=== PATIENT | male | born 1965 | race African-American/Black ===

== ENCOUNTER 2017-10-24 21:23 | Emergency (ER) | payer OTHER ==
[~2017-10-24] VITALS: Ht 182.9 cm; Wt 95.3 kg
[2017-10-24 21:30] VITALS: BP 148/98
--- NOTE | 2017-10-24 21:39 | PHYS DOC ---
Adult General Chief Complaint Chief Complaint: ABSCESS HPI HPI Patient is a 52 year old male presents to the emergency department with complaints of an abscess in the gluteal region for days. Patient was seen by his primary care provider, Dr. Sanders, today. He was referred to the general surgeon and has an appointment Sunday. General surgeon advised that if he cannot wait, he could come to the emergency department to have abscess I&D. Patient presents to the emergency department approximate 7 hours after his doctor's appointment because he had "a meeting to attend". Review of Systems Review of Systems Constitutional: Denies fever or chills [] Eyes: Denies change in visual acuity, redness, or eye pain [] HENT: Denies nasal congestion or sore throat [] Respiratory: Denies cough or shortness of breath [] Cardiovascular: No additional information not addressed in HPI [] GI: Denies abdominal pain, nausea, vomiting, bloody stools or diarrhea [] : Denies dysuria or hematuria [] Musculoskeletal: Denies back pain or joint pain [] Integument: abscess Neurologic: Denies headache, focal weakness or sensory changes [] Endocrine: Denies polyuria or polydipsia [] All other systems were reviewed and found to be within normal limits, except as documented in this note. Current Medications Current Medications Current Medications Medications (Trade) Dose Ordered Sig/[facility] Start Time Stop Time Status Last Admin Dose Admin Lidocaine HCl (Xylocaine-Mpf 1% Vial) 2 ml 1X ONCE 10/24/17 21:45 10/24/17 21:46 DC 10/24/17 21:48 2 ML Allergies Allergies Allergies Coded Allergies Type Severity Reaction Last Updated Verified No Known Drug Allergies 10/24/17 No Physical Exam Physical Exam Constitutional: Well developed, well nourished, no acute distress, non-toxic appearance. [] Cardiovascular:Heart rate regular rhythm, no murmur [] Lungs & Thorax: Bilateral breath sounds clear to auscultation [] Abdomen: Bowel sounds normal, soft, no tenderness, no masses, no pulsatile masses. [] Skin: Revealed cleft, proximal, 2 cm area of induration with central fluctuance. Mild tenderness. No erythema. Current Patient Data Vital Signs Vital Signs Date Time Temp Pulse Resp B/P (MAP) Pulse Ox O2 Delivery O2 Flow Rate FiO2 10/24/17 21:30 98.0 84 18 95 Room Air 98.0 EKG EKG [] Radiology/Procedures Radiology/Procedures Suture note: Area anesthetized with 1% lidocaine, 2 mL. #11 blade used to incise the abscess. Small amount of purulent discharge. Wound copiously irrigated. Wound dressed with 4 x 4's. Patient tolerated well.[] Course & Med Decision Making Course & Med Decision Making Pertinent Labs and Imaging studies reviewed. (See chart for details) [] Dragon Disclaimer Dragon Disclaimer This electronic medical record was generated, in whole or in part, using a voice recognition dictation system. Departure Departure Impression: Primary Impression: Abscess Disposition: HOME, SELF-CARE Condition: STABLE Referrals: JARAD SANDERS MD Patient Instructions: Abscess, Abscess, Care After Additional Instructions: Continue doxycycline as prescribed by your primary care provider. Scripts Acetaminophen With Codeine (TYLENOL WITH CODEINE #3 TABLET) 1 Each Tablet 1 TAB PO PRN Q6HRS Y for PAIN, #10 TAB Prov: FABIAN GUTIERREZ APRN 10/24/17 FABIAN GUTIERREZ APRN Oct 24, 2017 21:39
[2017-10-24] MEDS ORDERED: LIDOCAINE 1% PF 2 ML VIAL. INJ ONE (21:45)
[2017-10-24] MEDS ORDERED: ACET-704 PO (22:08)
== END 2017-10-24 22:21 | disposition home or self-care (01) ==
LOC: ER 21:23
DX: L02.31 Cutaneous abscess of buttock (principal)
CPT/HCPCS: 10060; 99283-25

== ENCOUNTER 2019-01-15 07:44 | Day surgery (SDC) | payer OTHER ==
[~2019-01-15] VITALS: Ht 182.9 cm; Wt 98.9 kg
[~2019-01-15 07:44] MED LIST: ACET-704 PO
[2019-01-15] MEDS ORDERED: TRIA1CAP3 PO (08:12)
[2019-01-15] MEDS ORDERED: MULT-245 PO (08:12)
[2019-01-15] MEDS ORDERED: ATOR20TA58 PO (08:12)
[2019-01-15] MEDS ORDERED: ASCO500C9 PO (08:12)
[2019-01-15] MEDS ORDERED: FLUT9.9S NS (08:12)
[2019-01-15] MEDS ORDERED: ONDANSETRON PF 4 MG/2 ML VIAL. ONE (08:14)
[2019-01-15] MEDS ORDERED: DEXAMETHASONE SOD PHOS 20 MG/5 ML VIAL. ONE (08:14)
[2019-01-15] MEDS ORDERED: LIDOCAINE 2% PF 5 ML VIAL. ONE (08:14)
[2019-01-15] MEDS ORDERED: PROPOFOL 20 ML IV ONE (08:14)
[2019-01-15] MEDS ORDERED: MIDAZOLAM HCL/PF 2 MG/2 ML VIAL. ONE (08:14)
[2019-01-15] MEDS ORDERED: fentaNYL PF VIAL 100 MCG/2 ML VIAL ONE ×2 (08:14→10:55)
[2019-01-15] MEDS ORDERED: ROCURONIUM 50 MG/5 ML VIAL. ONE (08:19)
[2019-01-15] MEDS ORDERED: IV RINGERS,LACTATED 1000ML 1,000 ML IV SCH ×2 (08:45→10:57)
[2019-01-15] MEDS ORDERED: GELATIN SPONGE SIZE 100. ONE (08:57)
[2019-01-15] MEDS ORDERED: BUPIVAC MPF-EPI 0.5%-1:200000 30 ML VIAL. ONE (08:57)
[2019-01-15] MEDS ORDERED: SEVOFLURANE 31 TO 60 MINUTES. IH ONE (09:53)
[2019-01-15] MEDS ORDERED: GLYCOPYRROLATE 1 MG/5 ML VIAL. ONE (09:54)
[2019-01-15] MEDS ORDERED: NEOMY/BACITR/POLYMYXIN OINT PACKET. TP ONE ×3 (09:56→09:58)
--- NOTE | 2019-01-15 10:16 | PDOC4 ---
Operative Note Operative Note Operative Note: Preoperative Diagnosis: Perianal fistula Postoperative Diagnosis: Perianal fistula, hemorrhoids Procedure: Exam under anesthesia, anal fistulotomy, hemorrhoidectomy Surgeon: Clayton Anesthesia: GET EBL: 10 ml Specimen: Hemorrhoids to pathology Drains: None Complications: None Indication: The patient is a 53-year-old male with a prior history of a perirectal abscess for which he underwent prior drainage. Over the last few months he is noticed a spot of continued purulent drainage along the left side of the anal canal. Examination is consistent with a probable perianal fistula. The plan is to proceed to the operating room for exam under anesthesia and probable fistulotomy. The details and risks of surgery were discussed with the patient. The risks include bleeding, infection, incontinence, pain, recurrence, anesthetic risk, potential need for additional surgery or procedure. He understands and would like to proceed. Description: The patient was taken to the operating room and placed supine on the operating table. Gen. anesthesia was performed. He was then placed in prone jackknife. The perianal skin was prepped with Betadine and draped in a standard surgical manner. The previously identified site of drainage was located in the perianal skin along the left superior aspect while lying prone near the 10 o'clock position. With a probe we were able to identify the tract leading to the anal gland of origin. The overlying tissue and skin was opened using cautery exposing the entire tract which was fairly superficial. The base of the tract was curetted using a scalpel. The patient did have some surrounding internal hemorrhoids in close proximity. We elected to resect these using the LigaSure device. These were fully excised and sent off to pathology. Hemostasis was achieved with cautery and no other abnormalities were noted. Gelfoam was placed in the anal canal to assist with hemostasis. A sterile dressing was then applied. The patient tolerated the procedure well and was sent to the recovery room in stable condition. At the end of the case all counts were correct. BLU FRAIRE MD Jan 15, 2019 10:16
--- NOTE | 2019-01-15 10:18 | DISCH ---
DISCHARGE INSTRUCTIONS Condition on Discharge Condition on Discharge: Stable Activity After Discharge Activity Instructions for Disc: Activity as tolerated, Other, see below Diet after Discharge Diet after Discharge: Regular Wound Incision Care Wound/Incision Care: Other, see below (sitz baths BID and after stools) Follow-Up Follow up with: Dr Fraire in office in 2 weeks, call for appt [phone] BLU FRAIRE MD Jan 15, 2019 10:18
[2019-01-15] MEDS ORDERED: OXYC1TAB15 PO (10:27)
[2019-01-15] MEDS ORDERED: oxyCODONE/APAP 5/325 1 TAB TABLET PO ONE ×2 (10:45)
[2019-01-15] MEDS ORDERED: fentaNYL PF VIAL 100 MCG/2 ML VIAL IV PRN ×2 (11:00)
[2019-01-15] MEDS ORDERED: MORPHINE SULFATE 4 MG/ML VIAL. IV PRN (11:00)
[2019-01-15] MEDS ORDERED: LIDOCAINE 1% PF 2 ML VIAL. ID PRN (11:00)
[2019-01-15] MEDS ORDERED: HYDROmorphone 2 MG/ML VIAL IV PRN (11:00)
[2019-01-15] MEDS ORDERED: PROCHLORPERAZINE 10 MG/2 ML VIAL. IV PRN (11:00)
[2019-01-15] MEDS ORDERED: ONDANSETRON PF 4 MG/2 ML VIAL. IV PRN (11:00)
[2019-01-15 11:34] VITALS: BP 119/68
--- NOTE | 2019-01-16 15:07 | PATHOLOGY ---
[facility] Accession Number: [id number] . 01 Material submitted: . INTERNAL HEMORRHOID . 01 Clinical history: . Anal fistula . 02 Diagnosis: Squamous and glandular mucosa, "internal hemorrhoid, hemorrhoidectomy": - Dilated congested vessels consistent with hemorrhoid. (SHA:kirk; 01/16/2019) MBR/01/16/2019 . 02 Electronically signed: . Bear Wilkerson MD, Pathologist NPI- [id number] . 01 Gross description: . Received in formalin labeled "Enrique Patterson, internal hemorrhoids," are 5 segments of garcia-pink epithelial covered tissue ranging from 1.1 x 0.8 x 0.8 to 1.9 x 0.4 x 0.4 cm in maximum dimensions and measuring 3.3 x 2.1 x 1.2 cm in aggregate dimensions. The epithelial surfaces appear intact, without grossly apparent lesions. On cut section, the subepithelial tissue has a highly vascular appearance. Dimension Specification Inspector tissue is submitted in cassette A1 and A2. (TSD; 01/15/2019) TOB/TOB . 02 Pathologist provided ICD-10: K64.9 . 02 CPT . 024973 Specimen Comment: A courtesy copy of this report has been sent to Specimen Comment: [phone], . Specimen Comment: Report sent to / DR WHITE Specimen Comment: A duplicate report has been generated due to demographic updates. Performed at: [address], [place] [id number] MD Kwesi Subramanian MD Phone: [phone] Performed at: [address] [facility] [id number] MD Jay Donnelly MD Phone: [phone]
== END 2019-01-15 11:34 | disposition home or self-care (01) ==
LOC: SURG 07:44
PROVIDERS: ATTEND Surgery
DX: K64.8 Other hemorrhoids (principal); K60.3 Anal fistula; I10 Essential (primary) hypertension; Z79.899 Other long term (current) drug therapy; Z98.890 Other specified postprocedural states
CPT/HCPCS: 46255; 88304; A7015; J0696; J1100; J2001; J2250; J2405; J2704; J3010; J3490; A4461

== ENCOUNTER → 2020-02-10 | Outpatient (CLI) | payer OTHER ==
[~2020-02-10] MED LIST changes: +ASCO500C9 PO; +ATOR20TA58 PO; +FLUT9.9S NS; +MULT-245 PO; +OXYC1TAB15 PO; +REGADENOSON 0.4 MG/5 ML DISP.SYRIN. IV ONE; +TRIA1CAP3 PO
--- NOTE | 2020-02-10 15:34 | RAD ---
MR#: [id number] Date of Study: 02/10/2020 Ordering Physician: EMMA MORILLO, Referring Physician: TAMARA JAMIL Tech: RT Jayne (Rodrigue) (N) APPROVED REPORT Test Type: Exercise Stress Nurse/Tech: Desi Almanza R.N. Test Indications: abnormal calcium score Cardiac History: htn, high cholesterol Medications: See Electronic Medical Record Medical History: See Electronic Medical Record Resting ECG: SR Resting Heart Rate: 84 bpm Resting Blood Pressure: 118/77mmHg Pretest Chest Pain: No chest pain Nurse/Tech Notes S1S2, lungs CTA Consent: The procedure was explained to the patient in lay terms. Informed consent was witnessed. Chuy eout was entered into [email or web address]. History and Stress Test performed by RT Rafael (Rodrigue) (N) Stress Symptoms No chest pain or symptoms. POST EXERCISE Reason for Termination: Reached target heart rate Target HR: Yes Max HR: 151 bpm 107% of Maximum Predicted HR: 141 bpm Exercise duration: 9:06 min:sec, 3 Stage Exercise capacity: 13.4METs Max Blood Pressure: 170/88mmHg Blood Pressure response to exercise: Normal blood pressure response during stress. Heart Rate response to exercise: wnl Chest Pain: No. Arrhythmia: No. ST Change: No. INTERPRETATION Stress EKG Conclusion: No evidence of stress induced EKG changes. Imaging Protocol IMAGE PROTOCOL: Rest Tc-99m/stress Tc-99m 1 day Rest: Stress: Viability: Radiopharm.Tc99m [id number] Sestamibi Dose10.00mCi 30.0mCi Duration 45min. 45min. Img Date 02/10/2020 02/10/2020 Inj-Img [id number]. 15min. Rest Admin Site:IV - Left AntecubitalAdministrator:ADRIANO Hall (Rodrigue)(N) Stress Admin Site: IV - Left AntecubitalAdministrator: RT Jayne (R)(N) STRESS DATA End Diast. Vol.75.0mlAv. Heart Rate86.0bpm End Syst. Vol.18.0mlCO Index BSA0.0L/min Myocardial Myii841.0gEject. Lnfvqbkm93.0% Stress Rates Pk. Fill Rate3.69EDV/secLVtime Pk. Fill 99.11msec Pk. Empty Rate5.39ESV/secLVtime Pk. Gdvvu158.60msec 1/3 Pk. Fill2.32EDV/sec Stress Scores Regional WT0.00Summed WT3.00 Regional WM0.00Summed WM0.00 The rest and stress images show normal perfusion, normal contraction and thickening. LV Perf. Quant 17 Seg. SSS0.00 17 Seg. SRS0.00 17 Seg. SDS0.00 Stress Defect Extent (% LAD)0.00Rest Defect Extent (% LAD)0.00Rev. Defect Extent (% LAD)0.00 Stress Defect Extent (% LCX) 0.00Rest Defect Extent (% LCX)0.00Rev. Defect Extent (% LCX)0.00 Stress Defect Extent (% RCA)0.00Rest Defect Extent (% RCA)0.00Rev. Defect Extent (% RCA)0.00 Stress Defect Extent (% RAMIRO)0.00Rest Defect Extent (% RAMIRO)0.00Rev. Defect Extent (% RAMIRO)0.00 Other Information Quality:Good Risk Assessment: Low Risk Conclusion 1. No evidence of EKG changes with stress testing. Good functional capacity. 2. Normal perfusion at stress/rest. 3. Low risk study. 4. EF > 60%. Signed by : Gael Fabian, Electronically Approved : 02/10/2020 15:34:18
== END | disposition home or self-care (01) ==
LOC: NM 08:26
PROVIDERS: ATTEND Internal Medicine Cardiovascular Disease
DX: R93.1 Abnormal findings on diagnostic imaging of heart and coronary circulation (principal); I10 Essential (primary) hypertension; E78.00 Pure hypercholesterolemia, unspecified
CPT/HCPCS: 78452; 93017; A9500; J2785